=== PATIENT | female | born 1925 | race Caucasian/White ===

== ENCOUNTER 2016-10-20 17:51 | Emergency (ER) | payer OTHER ==
[~2016-10-20] VITALS: Ht 162.6 cm; Wt 63.5 kg
[~2016-10-20 17:51] MED LIST: ACETAMINOPHEN325 MG PO; ACTONEL PO; ALBUTEROL2.5 MG/0.1 INH; ALDACTONE25 MG; ALDACTONE25 MG PO; ALPRAZOLAM 0.50.5 M1 PO; AMLODIPINE BESYL5 M1 PO; ASPIRIN EC81 M1 PO; BACTRIM DS TAB1 EACH PO; BAYER CHEWABLE81 MG PO; CARVEDILOL3.125 MG PO; CIPRO250 M1 PO; CIPRO250 M2; CIPROFLOXACIN500 M1 PO; COMPAZINE10 MG PO; COUMADIN 3 MG TA3 M1 PO; COUMADIN 4 MG TA4 M1 PO; COUMADIN 5 MG TA5 M1 PO; COZAAR 50 MG TA50 M1 PO; ENOXAPARIN30 MG/0.1 SUBQ; FEROSUL325 M1 PO; FLAGYL500 MG IV; FLORANEX PACKET1 GM PO; FUROSEMIDE 20 M20 M1 PO; GLYCOLAX255 GM PO; ICAPS TABLET1 EACH PO; LASIX 40 MG TAB40 M1 PO; LASIX 40 MG TAB40 M2 PO; LEVAQUIN 250 M250 MG PO; LEVAQUIN 500 M500 M1 PO; LEVOTHROID75 MCG PO; LEVOXYL175 MCG PO; LOMOTIL TABLET1 EACH PO; LOPERAMIDE2 MG PO; LOVASTAT40 PO; MEROPENEM 1 GM V1 GM IVPB; MILK OF MA2400 MG/10 PO; NEURONTIN 300300 M1; NEURONTIN 300300 M1 PO; NORCO 5-325 TA1 EACH PO; PACERONE 200 M200 MG PO; PLAVIX 75 MG TA75 M1 PO; PREDNISONE 20 M20 M1 PO; PROZAC 20 MG20 M1; PROZAC 20 MG20 M1 PO; PROZAC 20 MG20 MG PO; PYRIDIUM200 MG PO; REMERON15 MG PO; SENNA S TABLET1 EACH PO; SPIRIVA; SPIRIVA INH; SPIRIVA PO; SPIRONOLACTONE25 M1 PO; SYNTHROID100 MCG PO; SYNTHROID75 MCG; TAMSULOSIN HCL0.4 M1 PO; TENORMIN25 MG PO; TRAMADOL 50 MG50 MG PO; TYLENOL325 MG PO; ULTRAM 50MG TAB50 MG PO; VANCO1GM IV; VANCOMYCIN100 MG/ML PO
[2016-10-20] MEDS ORDERED: LEVOTHYROXIN0.112 M1 PO (18:27)
[2016-10-20 18:57] LABS: PROTIME 59.4 Seconds (9.3-11.4)
[2016-10-20 19:04] LABS: INR 5.7
[2016-11-01] MEDS ORDERED: COUMADIN 3 MG TA3 M1 PO (18:57)
[2016-11-01] MEDS ORDERED: PROBIOTIC1 EAC1 PO (18:59)
[2016-11-04] MEDS ORDERED: ATENOLOL 25 MG25 M1 PO (13:18)
[2016-11-04] MEDS ORDERED: ENOXAPARIN60 MG/0.1 SUBQ (13:18)
[2016-11-04] MEDS ORDERED: LEVAQUIN 250 M250 MG PO (13:18)
[2016-11-04] MEDS ORDERED: CATAPRES-TTS 10.1 M1 TRANSDERM (13:18)
[2016-11-04] MEDS ORDERED: FENTANYL PA25 MCG/HR TRANSDERM (13:18)
[2016-11-04] MEDS ORDERED: LORAZEPAM I2 MG/1 M2 PO (13:18)
[2016-11-04] MEDS ORDERED: MSL20MG/ML SUBLING (13:18)
== END 2016-10-20 20:42 | disposition home or self-care (01) ==
LOC: ER 17:51
PROVIDERS: Nurse Practitioner
DX: S60.212A Contusion of left wrist, initial encounter (principal); I25.2 Old myocardial infarction; I25.10 Atherosclerotic heart disease of native coronary artery without angina pectoris; I48.91 Unspecified atrial fibrillation; J44.9 Chronic obstructive pulmonary disease, unspecified; I73.89 Other specified peripheral vascular diseases; H35.30 Unspecified macular degeneration; F32.9 Major depressive disorder, single episode, unspecified; G25.81 Restless legs syndrome; I12.9 Hypertensive chronic kidney disease with stage 1 through stage 4 chronic kidney disease, or unspecified chronic kidney disease; N18.3 Chronic kidney disease, stage 3 (moderate); Z88.5 Allergy status to narcotic agent; Z86.2 Personal history of diseases of the blood and blood-forming organs and certain disorders involving the immune mechanism; Z88.7 Allergy status to serum and vaccine; Z87.891 Personal history of nicotine dependence; X50.0XXA Overexertion from strenuous movement or load, initial encounter; Y93.89 Activity, other specified; Y92.89 Other specified places as the place of occurrence of the external cause; Y99.8 Other external cause status

== ENCOUNTER 2016-10-30 20:34 | Emergency (ER) | payer OTHER ==
[~2016-10-30] VITALS: Ht 162.6 cm; Wt 61.2 kg
--- NOTE | ~2016-10-30 | EKG ---
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 : 1925 Requested By: Aj Price Order Number: [id number] MD: Bakari Membreno Measurements Intervals [place] Rate: 63 P: 43 WI: 200 QRS: -8 QRSD: 144 T: 135 QT: 482 QTc: 494 Interpretive Statements Sinus rhythm Left bundle branch block Compared to ECG 03/25/2016 09:14:59 Ventricular premature complex(es) no longer present Electronically Signed On 10-31-2016 9:31:15 CLAIMS ASSISTANT by Bakari Membreno [email or web address] <ELECTRONICALLY SIGNED> By: Bakari Membreno MD, [facility] 10/31/16 0931 15 15 Bakari Membreno MD, FAC /EPI
[~2016-10-30 20:34] MED LIST changes: +LEVOTHYROXIN0.112 M1 PO
[2016-10-30 21:03] LABS: HEMATOCRIT 31.6 % (37.0-47.0); HEMOGLOBIN 10.1 gm/dL (12.0-15.0); MANUAL DIFF YES; MCH 29.4 pg (26.0-34.0); MCHC 31.8 % (28.0-37.0); MCV 92.2 fL (80.0-100.0); PLATELET COUNT 451 thou/uL (150-400); RBC 3.42 mil/uL (4.20-5.00); RDW 15.5 % (10.5-14.5); WBC 11.8 thou/uL (4.0-11.0)
[2016-10-30 21:15] LABS: CALCIUM 9.9 mg/dL (8.5-10.1); CREATININE 2.3 mg/dL (0.6-1.3); POTASSIUM 5.2 mmol/L (3.5-5.1)
[2016-10-30 21:21] LABS: TOTAL BILIRUBIN 0.4 mg/dL (<0.1-1.0)
[2016-10-30 21:26] LABS: ABSOLUTE NEUTROPHILS 10.1 thou/uL (1.4-8.2); TOTAL CELL COUNT 100
[2016-10-30 21:27] LABS: ANISOCYTOSIS 1+; POLYCHROMASIA OCCASIONAL
[2016-10-30 21:45] LABS: TROPONIN-I < 0.04 ng/mL (<0.04-0.07)
[2016-10-31 00:42] LABS: URINE BILIRUBIN NEGATIVE (Negative); URINE BLOOD TRACE (Negative); URINE COLOR YELLOW; URINE GLUCOSE-RANDOM* NEGATIVE (Negative); URINE KETONES NEGATIVE (Negative); URINE LEUKOCYTES-REFLEX NEGATIVE (Negative); URINE PROTEIN (DIPSTICK) NEGATIVE (Negative); URINE SPECIFIC GRAVITY 1.015 (1.003-1.035); URINE UROBILINOGEN 0.2 E.U./dl (0.2-1.0)
[2016-10-31] MEDS ORDERED: COLACE100 MG PO (01:22)
[2016-11-01] MEDS ORDERED: COUMADIN 3 MG TA3 M1 PO (18:57)
[2016-11-01] MEDS ORDERED: PROBIOTIC1 EAC1 PO (18:59)
[2016-11-04] MEDS ORDERED: FENTANYL PA25 MCG/HR TRANSDERM (13:18)
[2016-11-04] MEDS ORDERED: ATENOLOL 25 MG25 M1 PO (13:18)
[2016-11-04] MEDS ORDERED: MSL20MG/ML SUBLING (13:18)
[2016-11-04] MEDS ORDERED: LEVAQUIN 250 M250 MG PO (13:18)
[2016-11-04] MEDS ORDERED: ENOXAPARIN60 MG/0.1 SUBQ (13:18)
[2016-11-04] MEDS ORDERED: CATAPRES-TTS 10.1 M1 TRANSDERM (13:18)
[2016-11-04] MEDS ORDERED: LORAZEPAM I2 MG/1 M2 PO (13:18)
== END 2016-10-31 02:20 | disposition home or self-care (01) ==
LOC: ER 20:34
PROVIDERS: Emergency Medicine; Physician Assistant
DX: K59.00 Constipation, unspecified (principal); I12.9 Hypertensive chronic kidney disease with stage 1 through stage 4 chronic kidney disease, or unspecified chronic kidney disease; N18.3 Chronic kidney disease, stage 3 (moderate); I25.2 Old myocardial infarction; J44.9 Chronic obstructive pulmonary disease, unspecified; F32.9 Major depressive disorder, single episode, unspecified; E78.5 Hyperlipidemia, unspecified; Z86.79 Personal history of other diseases of the circulatory system; Z88.6 Allergy status to analgesic agent; Z88.7 Allergy status to serum and vaccine; F17.210 Nicotine dependence, cigarettes, uncomplicated; N63 Unspecified lump in breast; R16.0 Hepatomegaly, not elsewhere classified